=== PATIENT | male | born 1990 | race African-American/Black ===

== ENCOUNTER 2025-04-09 20:10 | Emergency (ER) | payer MEDICAID ==
[~2025-04-09] VITALS: Ht 175.3 cm; Wt 69.0 kg
[2025-04-09 20:13] VITALS: TEMP 36.7; O2SAT 100
[2025-04-09] MEDS: IBUPROFEN 600MG TABLET PO STA (20:22)
[2025-04-09 20:41] LABS: BASOPHILS % 0.7 % (0.0-2.0); EOSINOPHILS % 0.4 % (0.0-5.0); HEMATOCRIT. 36.9 % (42.0-52.0); HEMOGLOBIN. 12.0 g/dL (14.0-18.0); LYMPHOCYTES % 31.2 % (20.0-50.0); MEAN PLATELET VOLUME 6.7 fl (7.4-10.4); MONOCYTES % 4.8 % (2.0-8.0); NEUTROPHILS % 62.9 % (40.0-76.0); PLATELET 456 x1000/uL (130-400); RED BLOOD CELL COUNT 3.65 mill/uL (4.7-6.1); RED CELL DISTRIBUTION WIDTH 18.3 % (11.6-14.6)
[2025-04-09 20:50] LABS: CREATININE 0.6 mg/dL (0.6-1.3); UREA NITROGEN BLOOD < 5 mg/dL (9-23)
[2025-04-09 21:02] LABS: ETHANOL BLOOD 452 mg/dL (<10)
[2025-04-09] MEDS ORDERED: CHLORDIAZEPOXIDE 25MG CAPSULE PO ONE (21:30)
[2025-04-09] MEDS: POTASSIUM CHLORIDE 20MEQ TABLET SR PO ONE (21:30)
[2025-04-09] MEDS: POTASSIUM CHLORIDE 20MEQ/PACKET PO ONE (21:30)
[2025-04-09] MEDS: CHLORDIAZEPOXIDE 25MG CAPSULE PO ONE (21:30)
[2025-04-09] MEDS: CHLORDIAZEPOXIDE 25MG CAPSULE PO SCH ×2 (22:52→23:01)
[2025-04-09] MEDS: POTASSIUM CHLORIDE 20MEQ/PACKET PO SCH (22:59)
[2025-04-09] MEDS: POTASSIUM CHLORIDE 20MEQ TABLET SR PO SCH (23:00)
[2025-04-09] MEDS: IBUPROFEN 600MG TABLET PO SCH (23:01)
[2025-04-09 23:38] VITALS: BP 154/108; PULSE 120; RESP 12; O2SAT 97
== END 2025-04-09 23:42 | disposition home or self-care (01) ==
LOC: ER 20:10
DX: F10.129 Alcohol abuse with intoxication, unspecified (principal); E87.6 Hypokalemia; Y90.8 Blood alcohol level of 240 mg/100 ml or more
CPT/HCPCS: 36415; 80048; 80320; 85025; 99284; G0480